=== PATIENT | male | born 1965 | race Caucasian/White ===

== ENCOUNTER 2024-03-29 03:33 | Emergency (ER) | payer SELFPAY ==
[~2024-03-29] VITALS: Ht 172.7 cm; Wt 104.0 kg
[2024-03-29 03:46] VITALS: BP 138/92
[2024-03-29] MEDS ORDERED: ACETAMINOPHEN 500 MG TAB PO ONE (04:10)
[2024-03-29] MEDS ORDERED: BUMETANIDE 1 MG/4 ML VIAL IV ONE (04:10)
[2024-03-29] MEDS ORDERED: KETOROLAC TROMETHAMINE 30 MG/ML SDV IV ONE (04:10)
[2024-03-29] MEDS ORDERED: PROMETHAZINE HCL 25 MG/ML AMP IV ONE (04:10)
[2024-03-29] MEDS ORDERED: OXYMETAZOLINE HCL 15 ML/BTL ONE (04:10)
[2024-03-29] MEDS ORDERED: LISINOPRIL2.5 MG PO (04:10)
[2024-03-29] MEDS ORDERED: ARTHRITIS MED (04:10)
[2024-03-29] MEDS ORDERED: METFORMIN500 M2 PO (04:10)
[2024-03-29] MEDS ORDERED: BAYER ASPIRIN E81 MG PO (04:11)
[2024-03-29 04:37] LABS: BASO% 0.7 % (0-3); EOS% 4.6 % (0-8); HEMATOCRIT 38.8 % (39.0-50.0); HEMOGLOBIN 12.3 g/dl (14.0-18.0); IMMATURE GRANULOCYTES 0.9 % (0.0-5.0); LYMPH% 16.3 % (15-41); MEAN CELL VOLUME 80.5 fL CALC (80.0-100.0); MEAN CORPUSCULAR HGB 25.5 pG CALC (26.0-32.0); MEAN CORPUSCULAR HGB CONC 31.7 g/dL CAL (32.0-36.0); MONO% 7.7 % (2-13); NEUT# 8.21 thou/uL (1.82-7.42); NEUT% 69.8 % (42-76); RED BLOOD COUNT 4.82 mill/uL (4.70-6.10); RED CELL DISTRI WIDTH 14.6 % (11.5-15.5)
[2024-03-29 04:50] LABS: ALBUMIN 3.8 g/dL (3.2-5.0); BILIRUBIN, TOTAL 0.3 mg/dL (0.2-1.3); CREATININE 0.8 mg/dL (0.7-1.3); MAGNESIUM 1.7 mg/dL (1.6-2.3); POTASSIUM 3.4 mmol/l (3.5-5.1); TOTAL PROTEIN 7.3 g/dL (6.3-8.2)
[2024-03-29 05:12] VITALS: BP 143/85
[2024-03-29 05:19] LABS: TSH, 3RD GENERATION 1.26 uIU/mL (0.47 - 4.68)
[2024-03-29 05:21] LABS: URINE BILIRUBIN - DIPSTICK Negative (NEGATIVE); URINE BLOOD DIPSTICK Negative (NEGATIVE); URINE COLOR Yellow; URINE GLUCOSE - DIPSTICK Negative (NEGATIVE); URINE KETONE Negative (NEGATIVE); URINE LEUK ESTERASE Negative (NEGATIVE); URINE NITRITE - DIPSTICK Negative (Negative); URINE PH 5.5 (4.5-8.0); URINE PROTEIN - DIPSTICK Negative (NEG-TRACE); URINE SPECIFIC GRAVITY 1.015; URINE UROBILINOGEN - DIPSTICK 0.2 E.U./dL (0.2)
[2024-03-29] MEDS ORDERED: HYDROCHLOROTHIA50 MG PO (06:44)
[2024-03-29 06:51] VITALS: BP 143/82
== END 2024-03-29 07:04 | disposition home or self-care (01) | DRG 948 ==
LOC: ED 03:33
PROVIDERS: Family Medicine
DX: R60.0 Localized edema (principal); F15.10 Other stimulant abuse, uncomplicated; J06.9 Acute upper respiratory infection, unspecified; I10 Essential (primary) hypertension; E11.9 Type 2 diabetes mellitus without complications; Z79.84 Long term (current) use of oral hypoglycemic drugs; Z72.0 Tobacco use; Z20.822 Contact with and (suspected) exposure to COVID-19
CPT/HCPCS: Q9967